=== PATIENT | male | born 1985 | race Caucasian/White ===

== ENCOUNTER 2021-07-03 14:19 | Outpatient (CLI) | payer OTHER, SELFPAY | END 2021-07-03 14:20 | disposition home or self-care (01) | LOC: NAV RAD 14:19 | PROVIDERS: ATTEND Family Medicine | DX: M75.41 Impingement syndrome of right shoulder (principal) | CPT/HCPCS: 72040 ==

== ENCOUNTER 2022-04-14 09:38 | Outpatient (CLI) | payer OTHER | END 2022-04-14 09:39 | disposition home or self-care (01) | LOC: NAV RAD 09:38 | PROVIDERS: ATTEND Family Medicine | DX: M54.12 Radiculopathy, cervical region (principal) | CPT/HCPCS: 72040 ==